=== PATIENT | female | born 1945 | race Caucasian/White ===

== ENCOUNTER 2018-04-20 08:59 | Inpatient (IN) | payer MEDICARE, MEDICAID ==
[~2018-04-20] VITALS: Ht 165.1 cm; Wt 78.6 kg
[2018-04-20] VITALS (8 sets, daily range): BP systolic 100–142; BP diastolic 61–82
--- NOTE | ~2018-04-20 | O ---
[place], [place] OPERATIVE NOTE NAME: ROSELINE PIZARRO UNIT #: [id number] ROOM: 523 DOCTOR: ALBINO NIEVES MD BIRTHDATE: [birth year] DOS: 04/20/2018 GASTROENDOSCOPIC REPORT: HISTORY: This is a 73-year-old patient who presented with stool impaction per CT scan and hematemesis. PROCEDURE: Today's procedure is EGD plus biopsy. PREMEDICATION: Propofol. SCOPE: Olympus forward-viewing gastroscope Q10 video. REPORT: After putting the patient in left lateral position and application of lubricant to the scope, the scope was introduced. Thereafter, under direct visualization, I advanced through the length of esophagus without difficulty. Distal esophageal ulcer at the esophagogastric junction was noticed. Gastric pouch was entered. Gastritis seen. Antral biopsy obtained. Duodenal bulb, second and third part within normal limit. The ulcer is not bleeding. This ulcer is small and scarred. After photographic series and inspection of the duodenal bulb, second and third part and GI reflection of the scope. Confirmation of no other pathology. Air was suctioned out. The patient was extubated, tolerated the procedure well. IMPRESSION: Distal esophageal ulcer at the esophagogastric junction, gastritis. PLAN: Continuation with Protonix 40 mg daily, antiemetics as needed, Zofran 4 mg q.6 hours, antireflux with elevation of the head of the bed 6 inch all time, Gaviscon Extra Strength one tablet or teaspoon at bedtime at the bedtime, soft diet and we are going to send her urine for urinalysis and also had at this stage, I did a digital examination there, she had stool impaction that was disimpacted. Therefore, we are going to give her MiraLax 5 doses in one liter of Gatorade, she hopefully will be able to drink and evacuate retained stool. [place], [place] OPERATIVE NOTE NAME: ROSELINE PIZARRO UNIT #: [id number] ROOM: 523 DOCTOR: ALBINO NIEVES MD BIRTHDATE: [birth year] ALBION NIEVES MD CM:OPRECORD:OPERATIVE NOTE 1930 ALBINO NIEVES MD 04/21/18 0447 interface
--- NOTE | ~2018-04-20 | EKG ---
[place], [place] ELECTROCARDIOGRAM REPORT NAME: ROSELINE PIZARRO UNIT #: [id number] ROOM: 523 DOCTOR: RADHA DRAFT REPORT BIRTHDATE: [birth year] [facility] Test Date: 2018-04-20 Test Time: 09:08:59 Pat Name: ROSELINE PIZARRO Department: Room: 523 Gender: F [employer] Director: Chana Shaffer : 1945 Requested By: SYLVIE DUDLEY Order Number: [id number] Reading MD: Michael Villalba MD Measurements Intervals [place] Rate: 101 P: 41 NE: 194 QRS: 17 QRSD: 93 T: 53 QT: 350 QTc: 454 Interpretive Statements Sinus tachycardia Low voltage, precordial leads Probable anteroseptal infarct, old No previous ECG available for comparison Electronically Signed On 04-20-2018 16:32:06 PST by Michael Villalba MD CM:EKGRPT:ELECTROCARDIOGRAM REPORT 1632 SYLVIE DONOHUE DRAFT REPORT SYLVIE DUDLEY DO
--- NOTE | ~2018-04-20 | CON ---
[place], [place] REPORT OF CONSULTATION NAME: ROSELINE PIZARRO UNIT #: [id number] ROOM: 523 DOCTOR: ALBINO NIEVES MD BIRTHDATE: [birth year] DOS: 04/20/2018 SUBJECTIVE: This is a 73-year-old patient who has presented with advanced dementia, hematemesis in a half-way and I have been asked for assessment of the patient and this regard to his serum lactic acid was 3.8. Comprehensive metabolic panel, electrolytes balanced essentially borderline abnormality. BNP was 126. Troponin was negative. INR 00.9. Urinalysis positive for bacteria 4+. Chest x-ray limited bilateral basal plate-like atelectasis. ALBINO NIEVES MD CM:CONSTR:REPORT OF CONSULTATION 1924 04/21/18 0425 interface
--- NOTE | ~2018-04-20 | CON ---
[place], [place] REPORT OF CONSULTATION NAME: ROSELINE PIZARRO UNIT #: [id number] ROOM: 523 DOCTOR: ALBINO NIEVES MD BIRTHDATE: [birth year] DOS: 04/20/2018 HISTORY OF PRESENT ILLNESS: I was in the middle of description of labs, anyways, white blood cell was 14, H and H of 17 and 54. She has presented with hematemesis; however, H and H appears to be normal. CT scan of the abdomen and pelvis was done, no acute pathology was noticed except fecal impaction. Lactic acid was increased to 5 and subsequently to 3.9. Her labs and records reviewed. PAST MEDICAL HISTORY: Associated with Alzheimer dementia, anxiety, history of seizure, osteoporosis, traumatic subdural hematoma. PAST SURGICAL HISTORY: Cholecystectomy, bladder suspension, cystocele repair. SOCIAL HISTORY: Nonsmoker, nonalcohol consumer. Resides in detention. FAMILY HISTORY: Noncontributory. ALLERGIES: PEANUTS. MEDICATIONS: List has been reviewed including aspirin. REVIEW OF SYSTEMS: Cannot be obtained from her due to cognitive incapability. PHYSICAL EXAMINATION: VITAL SIGNS: Stable, borderline hyperthermia with temperature of 99. HEENT: Otherwise benign. Eyes: Pupils round, reactive. Sclerae nonicteric. Mouth and buccal mucosa dry. NECK: Supple. LUNGS: Clear breath sounds. No wheeze, no rhonchi. HEART: Normal sinus rhythm, no gallop, no murmur. ABDOMEN: Soft. No hepato-organomegaly. Bowel sounds present. EXTREMITIES: No cyanosis, no pedal edema. NEUROLOGIC: Alert and disoriented. LABORATORY DATA: Reviewed, records reviewed. IMPRESSION: Hematemesis of stool impaction both was readdressed with endoscopy of upper tract as well as a digital disimpaction. [place], [place] REPORT OF CONSULTATION NAME: ROSELINE PIZARRO UNIT #: [id number] ROOM: 523 DOCTOR: ALBINO NIEVES MD BIRTHDATE: [birth year] ALBINO NIEVES MD CM:CONSTR:REPORT OF CONSULTATION 193 04/21/18 0437 interface
[~2018-04-20 08:59] MED LIST: ACETAMINOPHEN-H1 TA2 PO; AMBIEN10 M1 PO; ARICEPT10 MG PO; ARICEPT23MG PO; ATIVAN0.5 MG PO; BONIVA150 MG PO; CEPHALEXIN500 MG PO; CIPROFLOXACIN500 MG PO; CRESTOR10 MG PO; CYMBALTA30 MG PO; KEPPRA1000 MG PO; KEPPRA250 MG PO; LEVAQUIN750 MG PO; LIDODERM 5% PATC1 EA T; MACROBID100 M1 PO; MOM30 M1 PO; NAMENDA10 MG PO; PROTONIX40 MG PO; Senokot1 TAB PO; VITAMIN D50000 I3 PO; ZOLOFT100 MG
--- NOTE | 2018-04-20 09:45 | NUR ---
PT STRAIGHT CATH FOR URINE. TOLERATED WELL. RESTING IN BED COMFORTABLY WITHOUT S/S OF DISTRESS.
[2018-04-20 09:54] LABS: ALBUMIN 3.6 gm/dl (3.1-4.5); ALKALINE PHOSPHATASE 124 U/L (45-117); BUN 10 mg/dl (7-24); CHLORIDE 104 mmol/L (98-107); CREATININE 0.96 mg/dL (0.55-1.02); HEMOGLOBIN 17.5 g/dl (12.0-16.0); LIPASE 85 U/L (73-393); MEAN CELL VOLUME 96.3 fl (81.0-99.0); MEAN CORPUSCULAR HGB 31.2 pg (27.0-31.0); MEAN CORPUSCULAR HGB CONC 32.4 g/dl (33.0-37.0); MEAN PLATELET VOLUME 11.5 fl (9.6-12.3); PLATELET COUNT AUTOMATED 188 10*3/uL (130-400); POTASSIUM 4.6 mmol/L (3.5-5.1); RED BLOOD COUNT 5.61 10*6/uL (4.10-5.10); RED CELL DISTRI WIDTH 13.2 % (0-14.5); SGOT/AST 30 IU/L (3-35); SGPT/ALT 44 U/L (12-78); SODIUM 138 mmol/L (136-145); TOTAL PROTEIN 7.8 gm/dL (6.4-8.2); WHITE BLOOD COUNT 14.4 10*3/uL (4.8-10.8)
[2018-04-20 09:55] LABS: TROPONIN I < 0.015 ng/ml (<0.045)
[2018-04-20 09:58] LABS: BILIRUBIN NEGATIVE (NEGATIVE); BLOOD NEGATIVE (NEGATIVE); CLARITY SL CLOUDY (CLEAR); COLOR YELLOW (YELLOW); GLUCOSE NEGATIVE (NEGATIVE); KETONE NEGATIVE (NEGATIVE); LEUKO ESTERASE NEGATIVE (NEGATIVE); NITRITE NEGATIVE (NEGATIVE); SPECIFIC GRAVITY 1.015 (1.005-1.030); UROBILINOGEN 0.2 E.U./dl (0.2-1.0)
[2018-04-20 10:01] LABS: ACT PARTIAL THROMBO TIME 23.6 SECONDS (20.8-31.5); INTERNATIONAL NORM RATIO 0.9 (2.0-3.5)
[2018-04-20 10:11] LABS: BACTERIA 4+
[2018-04-20 10:18] LABS: TOTAL CELLS COUNTED 100 #CELLS
[2018-04-20 10:19] LABS: PLATELET SUFFICIENCY NORMAL (NORMAL)
--- NOTE | 2018-04-20 10:44 | NUR ---
PT TO CT SCAN AT THIS TIME.
--- NOTE | 2018-04-20 11:32 | NUR ---
PT REMAINS NPO.
--- NOTE | 2018-04-20 11:45 | NUR ---
Time: 1144 A 73 year old FEMALE admitted to 5E under services of CELINE ABBOTT DO. Pt. arrived via stretcher from ER. Chief complaint: VOMITING . [place]
--- NOTE | 2018-04-20 11:53 | NUR ---
REPORT TO PUMA HASSAN FROM [facility]
--- NOTE | 2018-04-20 12:27 | NUR ---
LAKESHA MO CALLED FOR CRITICAL LA 5.0.
--- NOTE | 2018-04-20 12:33 | NUR ---
DR NIEVES CALLED WITH NEW CONSULT. PATIENT IS TO STAY NPO FOR EGD TODAY.
[2018-04-20] MEDS ORDERED: ASPIRIN81 M1 PO (12:36)
[2018-04-20] MEDS ORDERED: ZOCOR20 MG PO (12:36)
[2018-04-20] MEDS ORDERED: PEPCID20 MG PO (12:37)
[2018-04-20] MEDS ORDERED: ATIVAN0.5 MG PO (12:38)
[2018-04-20] MEDS ORDERED: AZO CRANBERRY250 MG PO (12:39)
--- NOTE | 2018-04-20 12:58 | NUR ---
CALLED MIAH PINEDO. OBTAINED CONSENT FOR EGD. CLARIFIED PATIENT'S CODE STATUS DNR-CC.
--- NOTE | 2018-04-20 13:01 | NUR ---
SASHA WITH [facility]AKESHA MO PERTAINING TO PATIENT'S CODE STATUS DNR-CC PER MIAH PINEDO.
--- NOTE | 2018-04-20 16:10 | NUR ---
PATIENT TAKEN TO SURGERY FOR EGD.
--- NOTE | 2018-04-20 19:30 | NUR ---
OR NURSES UP TO GIVE REPORT TO PT. EZEQUIEL REQUESTS MIRALAX WITH GATORADE. WILL PUT IN ORDER PER EZEQUIEL'S REQUEST.
--- NOTE | 2018-04-20 20:00 | NUR ---
into see pt. discussed poc with MIAH Garcia (daughter). Eating and medication regimane discussed. Crush pills and give in applesauce. necter thick liquids and puree diet. Pt assessed at this time. resting easy. Daughter would like 4 bedrails up throughtout the night for safety's sake of pt. Will continue to monitor pt.
--- NOTE | 2018-04-20 20:28 | NUR ---
notified of POA requesting 4 point restraint bed rails. orders pending at this time.
--- NOTE | 2018-04-20 20:30 | NUR ---
notified that pt must be evaluated before 4 point restraint is initiated. into see pt now.
--- NOTE | 2018-04-20 20:33 | NUR ---
discussed restraint (4 bed rails up) to POA. WILFRED wishes to initiate for safety's sake. orders pending at this time
--- NOTE | 2018-04-20 22:00 | NUR ---
INTO MEDICATED PT. PT TOOK MEDICATION CRUSHED IN APPLESAUCE. PT UNABLE TO FINSIH ALL APPLESAUCE. ATTEMP TO GIVE MIRALAX POWDER AND GATORADE ORDERED. THICNKEN UP AND MIRALAX POWDER NOT MIXING BUT CLUMPING TOGETHER. UNABLE TO GIVE MEDICATION.
[2018-04-21] VITALS: BP 101/57; BP 111/64
[2018-04-21 06:14] LABS: BASO % 0.3 % (0.0-1.0); EOS % 0.3 % (1.0-4.0); LYMPH # 1.7 10*3/uL (1.3-4.4); LYMPH % 17.2 % (27.0-41.0); MEAN CELL VOLUME 98.5 fl (81.0-99.0); MEAN CORPUSCULAR HGB 30.7 pg (27.0-31.0); MEAN CORPUSCULAR HGB CONC 31.2 g/dl (33.0-37.0); MEAN PLATELET VOLUME 11.8 fl (9.6-12.3); MONO % 10.4 % (3.0-9.0); NEUT % 71.3 % (47.0-73.0); PLATELET COUNT AUTOMATED 148 10*3/uL (130-400); RED BLOOD COUNT 4.75 10*6/uL (4.10-5.10); RED CELL DISTRI WIDTH 13.6 % (0-14.5); WHITE BLOOD COUNT 9.8 10*3/uL (4.8-10.8)
[2018-04-21 06:16] LABS: HEMATOCRIT 46.8 % (37.0-47.0); HEMOGLOBIN 14.6 g/dl (12.0-16.0)
[2018-04-21 06:44] LABS: ALBUMIN 2.7 gm/dl (3.1-4.5); BUN 12 mg/dl (7-24); CHLORIDE 107 mmol/L (98-107); CHOLESTEROL 126 mg/dL (<200); CREATININE 0.85 mg/dL (0.55-1.02); PHOSPHOROUS 2.5 mg/dL (2.5-4.9); POTASSIUM 4.5 mmol/L (3.5-5.1); SGOT/AST 30 IU/L (3-35); SGPT/ALT 41 U/L (12-78); SODIUM 141 mmol/L (136-145); TRIGLYCERIDES 70 mg/dl (<150); VLDL CHOLESTEROL 14 mg/dL (6-40)
[2018-04-21 06:52] LABS: ALKALINE PHOSPHATASE 95 U/L (45-117); FREE T4 1.04 ng/dl (0.76-1.46); HDL CHOLESTEROL 52 mg/dl (40-60); LDL CHOLESTEROL 60 mg/dL (9-159); THYROID STIM HORMONE (HS) 0.823 uIU/ml (0.358-4.75); TOTAL PROTEIN 6.4 gm/dL (6.4-8.2)
[2018-04-21 07:55] LABS: VITAMIN D, 25-HYDROXY 29.2 ng/mL (30-100)
--- NOTE | 2018-04-21 07:56 | NUR ---
Shift chart check completed.
[2018-04-21 08:00] VITALS: BP 110/86
[2018-04-21 12:00] VITALS: BP 102/67
[2018-04-21 16:00] VITALS: BP 128/50
[2018-04-22] VITALS: BP 87/48
--- NOTE | 2018-04-22 02:45 | NUR ---
24 HR chart check completed.
[2018-04-22 06:08] LABS: ALBUMIN 2.8 gm/dl (3.1-4.5); ALKALINE PHOSPHATASE 95 U/L (45-117); BUN 13 mg/dl (7-24); CHLORIDE 110 mmol/L (98-107); CREATININE 0.64 mg/dL (0.55-1.02); POTASSIUM 4.1 mmol/L (3.5-5.1); SGOT/AST 23 IU/L (3-35); SGPT/ALT 32 U/L (12-78); SODIUM 145 mmol/L (136-145); TOTAL PROTEIN 6.2 gm/dL (6.4-8.2)
[2018-04-22 06:13] LABS: BASO % 0.5 % (0.0-1.0); EOS # 0.1 10*3/uL (0.0-0.4); EOS % 1.8 % (1.0-4.0); HEMATOCRIT 43.5 % (37.0-47.0); HEMOGLOBIN 13.3 g/dl (12.0-16.0); LYMPH # 1.9 10*3/uL (1.3-4.4); LYMPH % 28.5 % (27.0-41.0); MEAN CELL VOLUME 99.3 fl (81.0-99.0); MEAN CORPUSCULAR HGB 30.4 pg (27.0-31.0); MEAN CORPUSCULAR HGB CONC 30.6 g/dl (33.0-37.0); MEAN PLATELET VOLUME 11.7 fl (9.6-12.3); MONO # 0.7 10*3/uL (0.1-1.0); MONO % 10.6 % (3.0-9.0); NEUT # 3.8 10*3/uL (2.3-7.9); NEUT % 58.3 % (47.0-73.0); PLATELET COUNT AUTOMATED 140 10*3/uL (130-400); RED BLOOD COUNT 4.38 10*6/uL (4.10-5.10); RED CELL DISTRI WIDTH 13.3 % (0-14.5); WHITE BLOOD COUNT 6.5 10*3/uL (4.8-10.8)
[2018-04-22 08:00] VITALS: BP 119/77
--- NOTE | 2018-04-22 08:45 | NUR ---
PT RESTING IN BED. NO DISTRESS NOTED/ SEE SHIFT ASSESSMENT. WILL MONITOR
--- NOTE | 2018-04-22 11:30 | NUR ---
DTR HERE AT BEDSIDE, SPOKE WITH DR HATHAWAY . DTR AWARE OF PT RETURNING TO [facility] TODAY
[2018-04-22] MEDS ORDERED: PROTONIX40 MG PO (11:43)
[2018-04-22] MEDS ORDERED: ATIVAN0.5 MG PO (11:43)
[2018-04-22 12:00] VITALS: BP 117/66
--- NOTE | 2018-04-22 12:00 | NUR ---
REPORT CALLED TO [facility]
[2018-04-22] MEDS ORDERED: MACRODANTIN100 M1 PO (13:09)
--- NOTE | 2018-04-22 15:27 | NUR ---
CALLED ADM NURSE AT [facility] TO NOTIFY OF APPROX TIME OF PT [facility] SPECIAL[facility] TO RETURN TO [facility]
--- NOTE | 2018-04-22 17:05 | NUR ---
Discharge instructions reviewed with patient/family. Patient receptive and verbalizes understanding. Follow-up care arranged. Written instructions given to patient/family. SHELBY ESTEVEZ
== END 2018-04-22 17:05 | disposition other institution (70) | DRG 377 ==
LOC: ED 08:59 → EDHOLD 11:03 → 5E 11:21
PROVIDERS: Emergency Medicine; Family Medicine; Registered Nurse; ADMIT Internal Medicine
PROC: 0DB68ZX Excision of Stomach, Via Natural or Artificial Opening Endoscopic, Diagnostic (ICD-10-PCS; principal; 2018-04-20)
DX: K29.71 Gastritis, unspecified, with bleeding (principal); R65.11 Systemic inflammatory response syndrome (SIRS) of non-infectious origin with acute organ dysfunction; E44.0 Moderate protein-calorie malnutrition; E87.2 Acidosis; K22.11 Ulcer of esophagus with bleeding; G30.9 Alzheimer's disease, unspecified; F02.80 Dementia in other diseases classified elsewhere, unspecified severity, without behavioral disturbance, psychotic disturbance, mood disturbance, and anxiety; F41.9 Anxiety disorder, unspecified; E78.00 Pure hypercholesterolemia, unspecified; E86.0 Dehydration; R73.9 Hyperglycemia, unspecified; E83.41 Hypermagnesemia; Z90.49 Acquired absence of other specified parts of digestive tract; Z81.8 Family history of other mental and behavioral disorders; Z80.3 Family history of malignant neoplasm of breast; Z79.82 Long term (current) use of aspirin; Z68.29 Body mass index [BMI] 29.0-29.9, adult; Z91.010 Allergy to peanuts